=== PATIENT | female | born 1995 | race Caucasian/White ===

== ENCOUNTER 2022-12-12 08:52 | Outpatient (CLI) | payer OTHER, SELFPAY ==
[2022-12-12 09:09] LABS: Hematocrit 42.3 % (33.0-51.0); Hemoglobin* 13.8 gm/dL (12.0-16.0); Mean Corpuscular HGB Conc 33 gm/dL (32-36); Mean Corpuscular Hemoglobin 29 pg (26-34); Mean Corpuscular Volume 90 fL (80-100); Platelet Count* 273 K/uL (140-440); Red Blood Count 4.69 m/uL (4.00-5.20); White Blood Count* 5.74 K/uL (4.50-11.00)
[2022-12-12 09:11] LABS: Slide Review Reflex No
[2022-12-12 10:02] LABS: Cholesterol* 225 mg/dL (90-199); Triglycerides* 56 mg/dL (40-149)
[2022-12-12 10:03] LABS: HDL Cholesterol* 88 mg/dL (>=50); LDL Cholesterol Calculated 126 mg/dL (<100)
== END 2022-12-12 08:53 | disposition home or self-care (01) ==
PROVIDERS: PCP Family Medicine; Visit Provider Obstetrics & Gynecology
DX: Z00.00 Encounter for general adult medical examination without abnormal findings (principal); Z13.6 Encounter for screening for cardiovascular disorders; Z13.29 Encounter for screening for other suspected endocrine disorder
CPT/HCPCS: 80061; 84443; 85027

== ENCOUNTER 2023-09-15 10:44 | Emergency (ER) | payer OTHER, SELFPAY ==
[2023-09-15 11:14] VITALS: BP 111/73; PULSE 70; RESP 16; TEMP 36.6; O2SAT 100; BMI 24.2
--- NOTE | 2023-09-15 11:40 | ED_ITS ---
HPI - General Adult General Chief complaint: Unspecified Complaint, Adult Stated complaint: Poked with dirty instrument Time Seen by Provider: 09/15/23 11:26 Source: patient Mode of arrival: ambulatory Limitations: no limitations History of Present Illness HPI narrative: 28-year-old female coming in today after a exposure to body fluids at work. 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 She is here today for hepatitis and HIV testing. There was no obvious blood on her tool that she is aware of. Related Data Home Medications Medication Instructions Recorded Confirmed 09/15/23 Allergies Allergy/AdvReac Type Severity Reaction Status Date / Time No Known Allergies Allergy Unknown Unverified 04/10/23 10:22 PFSH PFSH Family History Father Alcoholism High blood pressure Family/Other Breast cancer Social History Narrative: Exercise involving walking- 7M daily with dog Non-smoker Single, engaged, human services assistant Social drinker- 4-8/week Smoking Status: Never smoker Little interest or pleasure in doing things: not at all Feeling down, depressed, or hopeless: not at all Exam Narrative: Exam Narrative: Well-nourished well-developed patient in no acute distress. Alert and oriented. Answers questions appropriately. Mood and affect are appropriate. Thoughts are goal oriented and rational. No tangential or magical thinking noted. Patient speaks in full sentences without needing to catch their breath. HEENT: Normocephalic atraumatic. Pupils are equally round reactive to light. Extraocular muscles are intact. Conjunctivae are moist without any icterus noted. Moist mucous membranes. Patient does have a small laceration to the tip of her left pointer finger that penetrates into the dermis. Const: Vital Signs, click to edit/add: Vital Signs - 24 hr 09/15/23 11:14 Temperature 97.9 F Pulse Rate [Pulse Oximeter] 70 Respiratory Rate 16 Blood Pressure [Ri ght Upper Arm] 111/73 Pulse Oximetry 100 Oxygen Delivery Me thod Room Air Course Course ED Course: Discussed with patient that the likelihood of her getting a infectious blood borne illness from a 15-year-old without obvious blood was almost 0. However patient is adamant that she needs this information for HR. She would like hepatitis panel and HIV testing. Vital Signs Vital signs: Initial Vital Signs Temperature 97.9 F 09/15/23 11:14 Temperature Source Temporal Artery Scan 09/15/23 11:14 Pulse Rate 70 09/15/23 11:14 Respiratory Rate 16 09/15/23 11:14 Blood Pressure 111/73 09/15/23 11:14 Blood Pressure Mean 85 09/15/23 11:14 Blood Pressure Position Sitting 09/15/23 11:14 Pulse Oximetry 100 09/15/23 11:14 Oxygen Delivery Method Room Air 09/15/23 11:14 Vital Signs Temperature 97.9 F 09/15/23 11:14 Pulse Rate 70 09/15/23 11:14 Respiratory Rate 16 09/15/23 11:14 Blood Pressure 111/73 09/15/23 11:14 Pulse Oximetry 100 09/15/23 11:14 Oxygen Delivery Method Room Air 09/15/23 11:14 Temperature 97.9 F 09/15/23 11:14 Pulse Rate 70 09/15/23 11:14 Respiratory Rate 16 09/15/23 11:14 Blood Pressure 111/73 09/15/23 11:14 Pulse Oximetry 100 09/15/23 11:14 Oxygen Delivery Method Room Air 09/15/23 11:14 Medical Decision Making MDM Narrative Medical decision making narrative: 28-year-old female status post occupational exposure via percutaneous injury. We will do HIV testing and an acute hepatitis panel as well as a surface antibody for hep B, patient is vaccinated for hepatitis-B. Recommend retesting in 6 weeks. Discharge Plan Discharge Clinical Impression: Exposure to body fluid Patient Disposition: Home, Self-Care Condition: Stable Additional Instructions: Recommend retesting in 6 weeks at your clinic. Prescriptions: No Action Follow Up/Referrals: Magalys Osman MD [Primary Care Provider] - Stand Alone Forms: [employer] Info Instructions
[2023-09-15 13:27] LABS: HIV 1/2/P24 Combo Screen* Negative (Negative)
[2023-09-15 13:36] LABS: Hepatitis B Surface Antibody* Negative (Negative)
[2023-09-17 12:43] LABS: Hep A Ab, IgM Negative (Negative); Hep B Core Ab, IgM Negative (Negative); Hep B Surface Antigen Negative (Negative); Hep C Ab by CIA Index 0.03 IV; Hep C Ab by CIA Interp Negative (Negative)
== END 2023-09-15 12:07 | disposition home or self-care (01) ==
PROVIDERS: Emergency Provider Family Medicine; PCP Family Medicine
DX: Z77.21 Contact with and (suspected) exposure to potentially hazardous body fluids (principal)
CPT/HCPCS: 36415; 80074; 86703; 86706; 99283

== ENCOUNTER 2023-10-02 08:58 | Outpatient (CLI) | payer OTHER, SELFPAY ==
--- NOTE | 2023-10-02 09:15 | CRLHL7_ITS ---
For Patients: As a result of the Century Cures Act, medical imaging exams and procedure reports are released immediately into your electronic medical record. You may view this report before your referring provider. If you have questions, please contact your health care provider. HISTORY: Dating and viability. COMPARISON: None available of this gestation. TECHNIQUE: Transvaginal ultrasound examination of the early was performed. FINDINGS: A single intrauterine gestational sac is seen with a pole. The crown-rump length measurement of 2.4 cm gives an estimated gestational age of 9 weeks 1 day with an estimated date of delivery of 05/05/2024. This correlates well with the LMP of 07/27/2023 which gives a clinical age of 9 weeks 4 days. Regular cardiac activity is seen at 167 BPM. There is a very tiny hypoechoic fluid collection inferior to the gestational sac, probably a tiny subchorionic hemorrhage, unlikely to be of clinical concern. There is no sign of free fluid in the pelvis. A probable corpus luteum cyst of is seen in the right ovary. The ovaries are otherwise normal in appearance. IMPRESSION: Single intrauterine gestation with estimated age of 9 weeks 1 day. Regular cardiac activity is seen. Dictated by Brayan Painter MD @ 10/05/2023 10:56:38 PM (Electronically Signed)
== END 2023-10-02 08:59 | disposition home or self-care (01) ==
PROVIDERS: PCP Family Medicine; Visit Provider Physician Assistant
DX: Z34.91 Encounter for supervision of normal pregnancy, unspecified, first trimester (principal); Z3A.09 9 weeks gestation of pregnancy
CPT/HCPCS: 76817

== ENCOUNTER 2023-10-02 10:18 | Outpatient (CLI) | payer OTHER, SELFPAY | END 2023-10-02 10:19 | disposition home or self-care (01) | PROVIDERS: PCP Family Medicine; Visit Provider Physician Assistant | DX: Z34.81 Encounter for supervision of other normal pregnancy, first trimester (principal) | CPT/HCPCS: 86592; 86703; 86704; 86706; 86762; 86787; 86803; 86850; 86900; 86901; 87086; 87340; 87491; 87591 ==

== ENCOUNTER 2023-10-27 10:23 | Outpatient (CLI) | payer OTHER, SELFPAY | END 2023-10-27 10:24 | disposition home or self-care (01) | PROVIDERS: PCP Family Medicine; Visit Provider Advanced Practice Midwife | DX: Z34.93 Encounter for supervision of normal pregnancy, unspecified, third trimester (principal) | CPT/HCPCS: 80074; 86703; 86706; 86708 ==

== ENCOUNTER 2023-12-18 07:19 | Outpatient (CLI) | payer OTHER, SELFPAY ==
--- NOTE | 2023-12-18 07:15 | US_ITS ---
Final Report Patient: ALINA AGUILERA Facility:?[facility] Patient ID:?[id number] Site Patient ID:?[id number]. Site :?[id number] Study:?US OB Pelvis BFAS-12/18/2023 8:10:27 AM Ordering Physician:AKILA CUENCA Final Report: INDICATION: Evaluate anatomy. COMPARISON: 10/02/2023 TECHNIQUE: Real time varma scale imaging of the fetus was performed as well as color Doppler analysis of the umbilical vessels. FINDINGS: Sonographic imaging demonstrates a single living intrauterine gestation. Fetus demonstrates a regular cardiac rate of 145 beats per minute. Fetus has a vertex longitudinal position. The placenta lies posteriorly without evidence of placenta previa. Placental edge is 4.4 cm from the internal cervical os. Amniotic fluid volume appears normal. Single deepest vertical pocket: 4.0 cm. The cervix is closed and measures 4.3 cm in length. The composite ultrasound gestational age is calculated at 20 weeks 2 days with an estimated sonographic due date of 05/04/2024. The estimated weight is 353 grams which lies at the 37th %. The following biometric measurements were obtained: Biparietal diameter: 4.8 cm/20 weeks 3 days 40th% Head circumference: 17.7 cm/20 weeks 1 day 24th% Abdominal circumference: 15.2 cm/20 weeks 3 days 39th% Femur length: 3.3 cm/20 weeks 3 days 38th% The HC/AC ratio measures: 1.16 range (1.07-1.25) On anatomic survey, there is a normal appearance of the cerebral ventricles, cavum septi pellucidi, cisterna magna and cerebellum. The nose, lips, and facial profile appear normal. The cervical, thoracic and lumbar spine are well visualized and appear normal. There is a normal four-chamber heart view and the left and right ventricular outflow tracts appear normal. The diaphragm and stomach appear normal. The kidneys and bladder also appear normal. There is a normal three-vessel cord and cord insertion site. The four extremities appear normal. IMPRESSION: Normal OB ultrasound exam with concordance of clinical and sonographic dating. No intrinsic abnormalities noted on anatomic survey. Dictated by Iván Hollingsworth MD @ 12/18/2023 11:39:43 AM (Electronic Signature)
== END 2023-12-18 07:20 | disposition home or self-care (01) ==
LOC: US 07:19
PROVIDERS: PCP Family Medicine; Visit Provider Advanced Practice Midwife
DX: Z34.92 Encounter for supervision of normal pregnancy, unspecified, second trimester (principal); Z3A.20 20 weeks gestation of pregnancy
CPT/HCPCS: 76805

== ENCOUNTER 2024-02-12 08:45 | Outpatient (CLI) | payer OTHER, SELFPAY | END 2024-02-12 08:46 | disposition home or self-care (01) | LOC: NFLDREF 02-17 07:47 | PROVIDERS: PCP Family Medicine; Referring Provider Family Medicine; Visit Provider Obstetrics & Gynecology | DX: Z34.90 Encounter for supervision of normal pregnancy, unspecified, unspecified trimester (principal) | CPT/HCPCS: 86592 ==

== ENCOUNTER 2024-04-08 10:24 | Outpatient (CLI) | payer OTHER, SELFPAY ==
[2024-04-09 09:56] LABS: Strep B DNA Probe POSITIVE (Negative)
[2024-04-09 10:06] LABS: Strep B Susceptibility Needed? No
== END 2024-04-08 10:25 | disposition home or self-care (01) ==
LOC: NFLDREF 10:24
PROVIDERS: PCP Family Medicine; Visit Provider Obstetrics & Gynecology
DX: Z34.93 Encounter for supervision of normal pregnancy, unspecified, third trimester (principal); Z3A.36 36 weeks gestation of pregnancy
CPT/HCPCS: 87081; 87653

== ENCOUNTER 2024-04-26 11:29 | Outpatient (CLI) | payer OTHER, SELFPAY ==
[2024-04-26 11:36] VITALS: PULSE 87; O2SAT 98
[2024-04-26 11:39] VITALS: RESP 18; TEMP 37.1
[2024-04-26 11:40] VITALS: BP 121/69; PULSE 100
[2024-04-26 12:41] LABS: Amnisure Rom* Negative
[2024-04-26 12:43] LABS: Clue Cells No Clue Cells Seen (None Seen); Trichomonas No Trichomonas Seen (None Seen); Yeast No Yeast Seen (None Seen)
--- NOTE | 2024-04-26 14:13 | PC.OBNST ---
NST Note NST Note Start: 04/26/24 11:39 Freq: ONCE Status: Active Protocol: Document 04/26/24 14:12 MMB (Rec: 04/26/24 14:13 MMB [id number]) NST Note 2 Para (# of births) 1 EDC 05/02/24 Gestational Age In Weeks & Days 39 Weeks & 1 Days Patient Presented with Complaint(s) of Leaking fluid,Decreased movement Reactive Yes Appropriate for Gestational Age Yes RN Dima Machuca RN Date 04/26/24 Reactive Yes Appropriate for Gestational Age Yes LUDIN Cardoso RN Date 04/26/24 OB NST charge Yes Complete NST Note via Write Note Yes The provider's electronic signature indicates the NST is reactive/appropriate for gestational age. *Note to provider: If an addendum is required, open the patient's chart and click on the note under the Nurse/Allied Health tab.
--- NOTE | 2024-05-06 14:58 | PC.OBNST ---
NST Note NST Note Start: 04/26/24 11:39 Freq: ONCE Status: Discharge Protocol: Document 04/26/24 14:12 MMB (Rec: 04/26/24 14:13 MMB [id number]) NST Note 2 Para (# of births) 1 EDC 05/02/24 Gestational Age In Weeks & Days 39 Weeks & 1 Days Patient Presented with Complaint(s) of Leaking fluid,Decreased movement Reactive Yes Appropriate for Gestational Age Yes RN Dima Machuca RN Date 04/26/24 Reactive Yes Appropriate for Gestational Age Yes LUDIN Cardoso RN Date 04/26/24 OB NST charge Yes Complete NST Note via Write Note Yes The provider's electronic signature indicates the NST is reactive/appropriate for gestational age. *Note to provider: If an addendum is required, open the patient's chart and click on the note under the Nurse/Allied Health tab.
== END 2024-04-26 13:20 | disposition home or self-care (01) ==
LOC: OB OUT 11:30 → OB 11:33
PROVIDERS: PCP Family Medicine; Visit Provider Obstetrics & Gynecology
DX: O47.1 False labor at or after 37 completed weeks of gestation (principal); O36.8130 Decreased fetal movements, third trimester, not applicable or unspecified; Z3A.39 39 weeks gestation of pregnancy
CPT/HCPCS: 59025; 84112; 87210; G0463

== ENCOUNTER 2024-04-28 06:19 | Inpatient (IN) | payer OTHER, SELFPAY ==
[2024-04-28] VITALS (38 sets, daily range): BP systolic 109–148; BP diastolic 57–85; PULSE 72–110; RESP 16–18; TEMP 36.3–37.2; O2SAT 97–99; BMI 26.3
[2024-04-28] MEDS: LACTATED RINGERS 1000 ML 1,000 ML 125 ML IV ×2 (06:45→16:11)
[2024-04-28] MEDS: AMPICILLIN 2 GM in 0.9 % SODIUM CHLORIDE Mini-bag 100 ML IVPB (07:38)
[2024-04-28] MEDS: OXYTOCIN 30 unit/500 ML in NS 30 UNIT/500 ML BAG IVPB (07:46)
--- NOTE | 2024-04-28 07:53 | P.OBHP_ITS ---
OB - H&P: HPI Labor/Induction History of Present Illness Time Seen by Provider: 07:53 Date Seen: 04/28/24 Chief complaint: Elective Induction Narrative: The patient is a 29 year old 2 para 1 at 39 weeks gestation by LMP, who presents for elective induction of labor. is complicated by history of depression and exercise-induced asthma. Kitty is feeling well today with no acute concerns. She denies any regular painful uterine contractions, vaginal bleeding or leaking of fluid. Endorses active movement. Review of systems negative. Specific Issues/Plans Spouse: Jeremy Powers. Daughter: Heather. Maternity T21 normal. Boy! Pranav! 1. History of depression, currently doing well without medication 2. Mild exercise-induced asthma Flu shot and COVID shot: Declined Not planning to breastfeed. contraception: IUD then eventual vasectomy GBS+, intrapartum antibiotic H&P by [facility] on 04/15/2024 History of Present Dating criteria: based on LMP care: good care Ultrasounds: normal mid trimester US Labs Blood type: O (+) positive GBS status: positive Meds Home Medications and Allergies Home Medications ?Medication ?Instructions ?Recorded ?Confirmed ?Type 09/15/23 04/21/24 History Allergies Allergy/AdvReac Type Severity Reaction Status Date / Time No Known Allergies Allergy Unknown Verified 04/21/24 10:11 OB - H&P: Exam Physical Exam: Vital signs: Temp Pulse Resp BP Pulse Ox 98.1 F 105 H 16 138/80 97 04/28/24 06:42 04/28/24 06:41 04/28/24 06:42 04/28/24 06:41 04/28/24 06:42 Narrative: General: Alert and oriented, in no acute distress Abdomen: Gravid, otherwise nontender nondistended. EFW 3400g by Darryl's. Cervix: 2/50/-1/soft and midposition with Law score of [address] Sondra Strange on 04/22. Plan to start induction with Pitocin. OB - Problem Based A/P Additional Plan (1) care: Status: Acute (2) Mild exercise-induced asthma: Status: Acute Plan Kitty is a 29-year-old at 39 weeks 3 days gestational age admitted for elective induction of labor. is complicated only by a history of depression and exercise-induced asthma. - Admit to L&D. Prior cervical exam in clinic was 2/50/-1 with a Law score 7. - Plan to start induction with Pitocin protocol, increase by 2mu/min every 30 minutes until rubin regularly/painfully. - Discussed likely next step in IOL will include AROM. - Start GBS prophylaxis now. - BT O+ - EFW 3400 g by Darryl - Anticipate next exam in 4 hours, sooner as clinically indicated.
[2024-04-28] MEDS: AMPICILLIN 1 GM in 0.9 % SODIUM CHLORIDE Mini-bag 100 ML IVPB ×2 (11:30→15:28)
[2024-04-28] MEDS: BUPIVACAINE 0.25% PF 10 ML 10 ML ML EPIDURAL (15:58)
[2024-04-28] MEDS: ROPIVACAINE 0.2% 100 ml 100 ML 12 MG EPIDURAL (15:58)
--- NOTE | 2024-04-28 16:11 | P.ANBPRC_ITS ---
[facility] Medical History Severe major depression (04/2018) ?F32.2 - Major depressive disorder, single episode, severe without psychotic features (ICD-10) Severe anxiety (04/2018) ?F41.9 - Anxiety disorder, unspecified (ICD-10) Normal spontaneous vaginal delivery ?O80 - Encounter for full-term uncomplicated delivery (ICD-10) Family History Father Alcoholism High blood pressure Family/Other Breast cancer Social History Narrative: SOCIAL HISTORY: Occupation: Orthodontic dental assistant professor of business. Marital status: . Anabaptist/cultural needs: no. Chemical or radiation exposure: X-rays at work, always behind lead. Pre- tobacco use: no. Pre- alcohol use: 0-1 per day. Current tobacco use: no. Current alcohol use: no. Recreational drug use: Marijuana use, stopped prior to conception. Dietary restrictions: no. Blood transfusion acceptable in an emergency: yes. PSYCHOSOCIAL HISTORY: History of depression or currently depressed: History of depression. Current or past physical, emotional, or sexual mistreatment: Denies. Problems that will make it hard to make it to appointments: Denies. What is your current living situation?: I presently have a place to live Problems where you live: no known problems In the past 12 months, utilities in danger of being shut off: no In past 12 months, lack of transportation kept you from medical appts, meetings, work, or getting things needed for daily living: no In the past 12 mos, have been you worried that your food would run out before you had money to buy more?: never true In the past 12 mos, the food you bought just didn't last and you didn't have money to buy more?: never true Smoking Status: Never smoker How often do you have a drink containing alcohol: never AUDIT-C Alcohol total score: 0 Non-prescribed substance use: denies use How often does anyone, including family, friends and others, physically hurt you : never How often does anyone, including family, friends and others, insult or talk down to you: never How often does anyone, including family, friends and others, threaten you with harm: never How often does anyone, including family, friends and others, scream or curse at you: never Little interest or pleasure in doing things: not at all Feeling down, depressed, or hopeless: not at all Meds Home Medications and Allergies Home Medications ?Medication ?Instructions ?Recorded ?Confirmed ?Type 09/15/23 04/21/24 History Allergies Allergy/AdvReac Type Severity Reaction Status Date / Time No Known Allergies Allergy Unknown Verified 04/21/24 10:11 Results Vital Signs Vital Signs: Last Vital Signs Temp 97.5 F L 04/28/24 15:37 Pulse 102 H 04/28/24 16:09 Resp 16 04/28/24 15:37 BP 115/60 04/28/24 16:09 Pulse Ox 99 04/28/24 15:56 Weight: 76.204 kg Height: 170.18 cm Anesthesia Procedures Epidural Insertion Patient Location: OB Start Time: 15:45 Stop Time: 16:11 Start Date: 04/28/24 Stop Date: 04/28/24 Reason for Block: procedure for pain Patient Position: sitting Performed By: Ayad Kelly Preanesthetic Checklist: IV checked, risks and benefits discussed, monitors and equipment checked, pre-op evaluation, timeout performed and anesthesia consent Prep: chlorhexidine gluconate Monitoring: blood pressure monitoring, continuous pulse oximetry and heart rate Approach: midline Vertebral Space: lumbar (1-5) Epidural Technique: DAVID saline Needle Type: Tuohy needle Injection Technique: continuous catheter Needle gauge: 17 Needle Length (cm): 10 cm Needle Insertion Depth (cm): 6 Catheter Gauge: 19 Catheter Type: multi-orifice Catheter at skin depth (cm): 12 Test Dose Result: negative and lidocaine 1.5% with epinephrine 1 to 200,000
--- NOTE | 2024-04-28 20:09 | PM.OBPNL ---
Subjective Time Seen by Provider: 13:00 Date Seen: 04/28/24 Narrative: Kitty is a 29yo at 39w3d GA ongoing elective IOL. is complicated by mild exercise induced asthma. Labor progress has included IV pitocin, now adequately treated with IV antibiotics for GBS prophylaxis. In for routine exam. Patient notes her pain is about a 2/10, on 16 of pitocin. Objective Exam: General: Alert and oriented, in no acute distress Cervix: 2/50/-1. After discussion of risks/benefits and alternatives, consent for AROM given. AROM performed with return of clear fluid. Category 1 FHR tracing Vital Signs: Last Vital Signs Temp 97.7 F 04/28/24 19:47 Pulse 90 04/28/24 20:02 Resp 18 04/28/24 19:33 BP 144/77 H 04/28/24 20:02 Pulse Ox 99 04/28/24 19:33 Assessment Amniotic Membrane Status: AROM Plan Plan: - Cervix is 2/50/-1, AROM performed with return of clear fluid - Plan to hold pitocin for now, will continue to monitor FHR and toco data and revise as needed - Next check in 4 hours, sooner as clinically indicated
--- NOTE | 2024-04-28 20:14 | W.PM.VAGD1_ITS ---
Procedure Delivery date: 04/28/24 Procedure Done: Global Intrapartal Events: Labor Induction Delivery augmentation: rupture of membranes Delivery monitor: external FHT Route of delivery: Laceration description: None Estimated blood loss (mL): 200 Anesthesia type: Epidural Disposition: floor Complications: None Narrative: Kitty is a 29-year-old at 39 weeks 3 days gestational age admitted to the hospital for elective induction of labor. is complicated only by mild exercise-induced asthma and GBS positivity. heart tones on admission were category 1. Her labor was induced with IV Pitocin and epidural were utilized for pain management. Status of bag of rawls: AROM performed intrapartum with return of clear fluid. heart tones during active labor were category 1 and 2. She was complete at 1813 and had a normal spontaneous vaginal delivery at 1823. heart tones during second stage of labor were category 1 and 2. Baby delivered OA, restituted to SMITH and the anterior and posterior shoulders deli ale without difficulty. Nuchal cord: Present x1, delivered through and reduced at the perineum. The cord was clamped and cut after delayed cord clamping. Active management of the 3rd stage commenced with IV Pitocin and gentle traction. The placenta delivered spontaneous and intact at 1832. details: - Live-born male infant - weight 3170 g - APGARS 7 and 8 at 1 and 5 minutes respectively Cord gases sent: No Cord blood sent for infant ABO: No Perineum and vagina were inspected, and the following lacerations were noted: Intact. No repair was required. Excellent uterine tone and hemostasis was noted. The following counts were correct: Sponge, needles and instruments. Mother and in stable condition following the . [place] Infant Infant Gender: Male presentation: vertex Placental Delivery Description: Spontaneous Cord Description: 3 Vessels total score - 1 minute: 7 total score - 5 minute: 8
[2024-04-28 21:12] LABS: Hemoglobin* 11.4 gm/dL (12.0-16.0); Mean Corpuscular HGB Conc 32 gm/dL (32-36); Mean Corpuscular Hemoglobin 26 pg (26-34); Mean Corpuscular Volume 83 fL (80-100); Platelet Count* 218 K/uL (140-440); Red Blood Count 4.35 m/uL (4.00-5.20); White Blood Count* 16.84 K/uL (4.50-11.00)
[2024-04-28 21:19] LABS: Slide Review Reflex No
[2024-04-28 21:35] LABS: Alanine Aminotransferase* 12 U/L (4-35); Aspartate Amino Transferase* 21 U/L (12-35); Blood Urea Nitrogen* 11 mg/dL (5-24); Creatinine* 0.4 mg/dL (0.5-1.5); Estimated Glomerular Filt Rate 137 ml/min
[2024-04-29 00:08] VITALS: BP 138/81; PULSE 92; RESP 16; TEMP 36.7; O2SAT 99
[2024-04-29 03:28] VITALS: BP 120/76; PULSE 94; RESP 18; TEMP 36.7; O2SAT 99
[2024-04-29] MEDS: IBUPROFEN 600 MG TABLET PO (03:30)
[2024-04-29 08:10] VITALS: BP 121/71; PULSE 76; RESP 16; TEMP 36.4; O2SAT 97
[2024-04-29] MEDS: DOCUSATE SODIUM 100 MG CAPSULE PO (08:17)
[2024-04-29] MEDS: ACETAMINOPHEN 500 MG TABLET 1000 MG PO (08:17)
--- NOTE | 2024-04-29 10:47 | PM.ANPOST ---
Post Anesthesia Note Post Anesthesia Note Patient seen: Inpatient Respiratory Status: adequate Cardiovascular Status: adequate Mental Status: baseline Pain: adequate Temp: baseline Anesthetic awareness: N/A Complications: none Follow care: none
--- NOTE | 2024-04-29 13:43 | P.DS_ITS ---
DS: Providers Provider Date Seen: 04/29/24 Date of admission: 04/28/24 06:19 Primary care physician: Magalys Osman MD Admitting Clinician: Tiana Herbert MD Attending Physician on discharge: Tiana Herbert MD Date of Discharge: 04/29/24 DS: Diagnosis Discharge Diagnosis (1) Lactating mother: Status: Acute (2) care following vaginal delivery: Status: Acute (3) Mild exercise-induced asthma: Status: Acute Exam Narrative: Exam Narrative: GENERAL APPEARANCE:? normal affect, alert, no distress? MOOD:? appropriate? CHEST:? clear to auscultation and percussion? HEART:? regular rate and rhythm? ABDOMEN:? soft, non-tender the uterine fundus is U/2 and is appropriate for the stage of recovery.? PERINEUM:? mild edema of the perineum, there is an intact perineum that is healing well.? EXTREMITIES:? normal and no edema? Const: Vital Signs, click to edit/add: Vital Signs - 24 hr 04/28/24 14:05 04/28/24 14:05 04/28/24 15:37 Temperature 97.6 F 97.5 F L Pulse Rate 77 Pulse Rate [Pulse Oximeter] Respiratory Rate 16 16 Blood Pressure 130/69 Blood Pressure [Le ft Arm] Pulse Oximetry Oxygen Delivery [facility] 04/28/24 15:46 04/28/24 15:51 04/28/24 15:54 Temperature Pulse Rate 81 Pulse Rate [Pulse Oximeter] Respiratory Rate Blood Pressure 148/85 H Blood Pressure [Le ft Arm] Pulse Oximetry 99 98 Oxygen Delivery [facility] 04/28/24 15:56 04/28/24 16:01 04/28/24 16:04 Temperature Pulse Rate 84 78 Pulse Rate [Pulse Oximeter] Respiratory Rate Blood Pressure 134/64 127/79 Blood Pressure [Le ft Arm] Pulse Oximetry 99 Oxygen Delivery [facility] 04/28/24 16:05 04/28/24 16:07 04/28/24 16:09 Temperature Pulse Rate 89 82 102 H Pulse Rate [Pulse Oximeter] Respiratory Rate Blood Pressure 122/74 126/75 115/60 Blood Pressure [Le ft Arm] Pulse Oximetry Oxygen Delivery [facility] 04/28/24 16:16 04/28/24 16:18 04/28/24 16:32 Temperature 97.6 F Pulse Rate 75 72 Pulse Rate [Pulse Oximeter] Respiratory Rate 16 Blood Pressure 128/67 120/60 Blood Pressure [Le ft Arm] Pulse Oximetry Oxygen Delivery [facility] 04/28/24 16:47 04/28/24 17:01 04/28/24 17:16 Temperature Pulse Rate 75 81 81 Pulse Rate [Pulse Oximeter] Respiratory Rate Blood Pressure 113/59 L 115/58 L 113/57 L Blood Pressure [Le ft Arm] Pulse Oximetry Oxygen Delivery [facility] 04/28/24 17:16 04/28/24 17:31 04/28/24 17:47 Temperature 97.4 F L Pulse Rate 91 84 Pulse Rate [Pulse Oximeter] Respiratory Rate 16 Blood Pressure 115/62 109/61 Blood Pressure [Le ft Arm] Pulse Oximetry Oxygen Delivery [facility] 04/28/24 18:32 04/28/24 18:49 04/28/24 18:49 Temperature Pulse Rate 81 86 Pulse Rate [Pulse Oximeter] Respiratory Rate 16 Blood Pressure 135/72 129/60 Blood Pressure [Le ft Arm] Pulse Oximetry Oxygen Delivery [facility] 04/28/24 19:03 04/28/24 19:18 04/28/24 19:18 Temperature 98.9 F Pulse Rate 88 Pulse Rate [Pulse Oximeter] Respiratory Rate 18 Blood Pressure 121/69 141/81 H Blood Pressure [Le ft Arm] Pulse Oximetry Oxygen Delivery [facility] 04/28/24 19:32 04/28/24 19:33 04/28/24 19:47 Temperature 98.9 F Pulse Rate 78 99 Pulse Rate [Pulse Oximeter] Respiratory Rate 18 Blood Pressure 143/75 H 146/76 H Blood Pressure [Le ft Arm] Pulse Oximetry 99 Oxygen Delivery [facility] 04/28/24 19:47 04/28/24 20:02 04/28/24 20:02 Temperature 97.7 F 97.7 F Pulse Rate 90 Pulse Rate [Pulse Oximeter] Respiratory Rate 18 Blood Pressure 144/77 H Blood Pressure [Le ft Arm] Pulse Oximetry 99 Oxygen Delivery [facility] 04/28/24 20:17 04/29/24 00:08 04/29/24 03:28 Temperature 98.0 F 98.1 F Pulse Rate 83 Pulse Rate [Pulse Oximeter] 92 94 Respiratory Rate 16 18 Blood Pressure 138/74 Blood Pressure [Le ft Arm] 138/81 120/76 Pulse Oximetry 99 99 Oxygen Delivery Me thod Room Air Room Air 04/29/24 08:10 Temperature 97.6 F Pulse Rate Pulse Rate [Pulse Oximeter] 76 Respiratory Rate 16 Blood Pressure Blood Pressure [Le ft Arm] 121/71 Pulse Oximetry 97 Oxygen Delivery Me thod Documenting provider has reviewed patient's vital signs: yes OB - DS: Summary Hospital Course Hospital Course: Kitty is a 29 year old G 2 P 2 at 39.3 weeks gestation that was admitted to the [facility] on 04/28/24 for an elective induction. She had an uncomplicated vaginal delivery. She delivered a viable male . She is bottle feeding. the patient has done well. Her pain is well controlled with current medications.? She has no new complaints.? Urinary output is adequate and she is voiding without difficulty.? Has a good appetite, is tolerating a general diet, is passing flatus, and has not had a bowel movement.? Has scant amount of rubra lochia.? She is ambulating well.?She is planning an IUD for contraception. Peripartum Data delivery method: Vaginal Laceration description: None Episiotomy description: None complications: none Infant Gender: Male Discharge Plan: Home Status at Discharge Functional status at discharge: independent ambulation Overall status at discharge: patient is progressing back to baseline Time Spent with Patient Time attestation: Total time spent providing and/or coordinating discharge services: Discharge Plan Discharge Disposition: Home, Self-Care Date of Admission: 04/28/24 06:19 Attending Provider on Discharge: Sahara Bolden Primary Care Provider: Magalys Osman Condition: Stable Anticipated Discharge Date/Time: 04/29/24 20:00 Discharge Medications: New docusate sodium 100 mg Capsule 100 mg PO DAILY Qty: 90 0RF Rx Instructions: Take 1-2 tablets daily as needed for constipation. Continued Discharge Orders: Discharge Order (Routine); Ordered 04/29/24 Ordered By: Sahara Bolden Patient Education: OB Vaginal/Bottle Feeding Additional Instructions: Discharge instructions were reviewed with the patient including signs and symptoms of infection and home going medications.? Lifting Restrictions: 20 pounds for 6? weeks? ?? Do not drive while taking narcotic pain meds.? Off Work or School for 6 weeks.? ?? Symptoms to report to doctor:? -Bleeding that saturates more than one pad per hour? -Passing clots larger than the size of a golf ball? -Pain not relieved by prescribed medication? -Fever above 100.4 degrees Fahrenheit? -A foul vaginal odor? -Difficulty in emotions, mood and functions? -Thoughts of hurting yourself and/or ? -Painful, reddened area in your breast? -Any drainage, redness or tenderness in your IV/epidural site? -Severe headache that doesn't improve after taking medications? -Changes in vision, including temporary loss of vision, blurred vision, and/or light sensitivity? -Upper abdominal pain (usually under ribs on the right side)? -Decrease in urination or painful, frequent urinating? -Chest pain? -Shortness of breath? -Tenderness or pain with redness and/swelling in the calf(s) of your leg? ?? Follow Up in clinic in 2 and 6 weeks.? ?? consultation services are available to all mothers and babies for the first year after delivery.? To make an appointment, please call [phone].? Activity Level: Activity as Tolerated Discharge Diet: Regular Follow Up Appointments: [facility] [Provider Group] Forms: MyHealth Info Instructions
[2024-04-29 14:42] VITALS: BP 132/85; PULSE 91; RESP 16; TEMP 36.7; O2SAT 98
[2024-04-29 17:22] VITALS: BP 127/84; PULSE 88; RESP 16; TEMP 36.6; O2SAT 96
[2024-04-29 23:33] VITALS: BP 125/72; PULSE 88; RESP 18; TEMP 36.9; O2SAT 98
[2024-04-30 08:52] VITALS: BP 112/76; PULSE 83; RESP 16; TEMP 36.6; O2SAT 97
--- NOTE | 2024-04-30 09:12 | P.DS_ITS ---
DS: Providers Provider Date Seen: 04/30/24 Date of admission: 04/28/24 06:19 Primary care physician: Magalys Osman MD Admitting Clinician: Tiana Herbert MD Attending Physician on discharge: aKe Radford MD Date of Discharge: 04/30/24 DS: Diagnosis Discharge Diagnosis (1) care following vaginal delivery: Status: Acute (2) Lactating mother: Status: Acute (3) Mild exercise-induced asthma: Status: Acute (4) Gestational hypertension: Status: Acute Exam Narrative: Exam Narrative: GENERAL APPEARANCE:? normal affect, alert, no distress MOOD:? appropriate CHEST:? clear to auscultation HEART:? regular rate and rhythm ABDOMEN:? soft, non-tender the uterine fundus is At Umbilicus, Midline and is appropriate for the stage of recovery. PERINEUM:? mild edema of the perineum, normal pp lochia. EXTREMITIES:? normal and no edema Const: Vital Signs, click to edit/add: Vital Signs - 24 hr 04/29/24 14:42 04/29/24 17:22 04/29/24 23:33 Temperature 98.1 F 97.9 F 98.4 F Pulse Rate [Pulse Oximeter] 91 88 88 Respiratory Rate 16 16 18 Blood Pressure [Le ft Arm] 132/85 127/84 125/72 Pulse Oximetry 98 96 98 Oxygen Delivery Me thod Room Air Room Air Room Air 04/30/24 08:52 Temperature 98 F Pulse Rate [Pulse Oximeter] 83 Respiratory Rate 16 Blood Pressure [Le ft Arm] 112/76 Pulse Oximetry 97 Oxygen Delivery Me thod Room Air OB - DS: Summary Hospital Course Hospital Course: The patient is a 29 year old G 2 P 2002 at 393/7 weeks gestation that was admitted to the Center on 04/28/24 for induction of labor. She had an uncomplicated vaginal delivery. She delivered a viable male infant. She is breast feeding. the patient has done well. Gestational hypertension diagnosis given by evidence of mild range elevation of blood pressures 4 hours apart. No evidence of proteinuria. Preeclampsia labs on 04/28/2024 normal. Normal blood pressures . No [employer] irritability symptoms. Peripartum Data delivery method: Vaginal Laceration description: None complications: none [facility] Gender: Male Infant Discharge Plan: Home Status at Discharge Functional status at discharge: independent ambulation Overall status at discharge: patient is progressing back to baseline Time Spent with Patient Time attestation: Total time spent providing and/or coordinating discharge services: Time spent: Less than 30 minutes Discharge Plan Discharge Disposition: Home, Self-Care Date of Admission: 04/28/24 06:19 Attending Provider on Discharge: Fariba Radford Primary Care Provider: Magalys Osman Condition: Stable Anticipated Discharge Date/Time: 04/30/24 09:15 Discharge Medications: New docusate sodium 100 mg Capsule 100 mg PO DAILY Qty: 90 0RF Rx Instructions: Take 1-2 tablets daily as needed for constipation. Continued 1 tab PO DAILY Discharge Orders: Discharge Order (Routine); Ordered 04/29/24 Ordered By: Ciara Carter Patient Education: OB Over the Counter Medication Information, OB Vaginal/Bottle Feeding Additional Instructions: Measure blood pressures at home twice a day. Notify clinic if there are blood pressures persistently more than 140 systolics, 90s diastolics or if any symptoms such as headaches that do not go away with pain medication, visual changes such as dark spots in vision, pain in the upper abdomen-that moves towards the upper right side. Follow-up in clinic in 3-5 days after discharge for blood pressure check. Follow-up in 6 weeks in clinic for regular visit. ?? consultation services are available to all mothers and babies for the first year after delivery.? To make an appointment, please call [phone].? Activity Level: Activity as Tolerated Activity Detail: Nothing vaginally for 6 weeks Discharge Diet: Regular Follow Up Appointments: [facility] [Provider Group] Forms: [employer] Info Instructions
[2024-04-30 19:15] LABS: Rapid Plasma Reagin (RPR) Non Reactive (Non Reactive)
== END 2024-04-30 10:10 | disposition home or self-care (01) | DRG 807 ==
PROVIDERS: Admitting Provider Obstetrics & Gynecology; PCP Family Medicine; Visit Provider Obstetrics & Gynecology
DX: O99.824 Streptococcus B carrier state complicating childbirth (principal); Z37.0 Single live birth; O13.5 Gestational [pregnancy-induced] hypertension without significant proteinuria, complicating the puerperium; O99.344 Other mental disorders complicating childbirth; F32.A Depression, unspecified; J45.990 Exercise induced bronchospasm; Z3A.39 39 weeks gestation of pregnancy
CPT/HCPCS: 01967; 36415; 82565; 82570; 84156; 84450; 84460; 84520; 85018; 85027; 86592; A9270; J0290; J0665; J2371; J2795; J7120